=== PATIENT | male | born 1945 | race Caucasian/White ===

== ENCOUNTER → 2017-12-20 16:37 | Outpatient (CLI) | payer MEDICARE, BC, SELFPAY ==
--- NOTE | 2017-12-20 16:35 | CT_ITS ---
STUDY: CT TEMPORAL BONES WITHOUT CONTRAST REASON FOR EXAM: Male, 72 years old. ear pain after right cochlear implant in 2016 RADIATION DOSAGE (If Supplied By Facility): CTDIvol = ( 82.28 ) mGy, DLP = ( 817.07 ) mGycm TECHNIQUE: The patient was scanned in a multi detector CT scanner. High resolution transaxial imaging was performed without the administration of intravenous contrast material. Sagittal and coronal images were reconstructed. Individualized dose optimization techniques were used for this CT. COMPARISON: June 06, 2015 FINDINGS: RIGHT TEMPORAL BONE A cochlear implant is present on the right, with leads in appropriate position. The ossicles are absent. Membranous debris is present in the external auditory canal and residual tympanic cavity. The tympanic membrane is absent. There is diffuse enlargement of the tympanic cavity which could be postoperative in nature or related to chronic erosive changes. The scutum is absent. No evidence of tegmen tympani or semicircular canal dehiscence. No evidence of osseous facial nerve canal dehiscence. Nonpneumatization of the mastoid portion of the temporal bone. LEFT TEMPORAL BONE Normal left external auditory canal. Normal malleus, incus and stapedius. Normal malleoincudal and incudostapedial articulations. Normal epitympanum, mesotympanum, and hypotympanum. Normal left posterior, superior and lateral semicircular canals. Normal left vestibule and cochlea. Normal tympanic segment of the facial nerve. Normal Korner's septum, tegmen tympani, arcuate eminence and aditus ad antrum. Normal left mastoid air cells. Normal left petrous apex. Normal left petrous carotid artery. Normal left jugular fossa. Normal left internal auditory canal. Normal left vestibular and cochlear aqueducts. CT/Orb Sella Post Fossa Ear w/o IMPRESSION: Cochlear implant on the right with leads in appropriate position. Membranous debris in the residual external auditory canal and tympanic cavity on the right. No evidence of osseous dehiscence of the tegmen tympani, semicircular canals, or facial nerve on the right. Multiple structures are absent on the right which could be related to postoperative change and/or chronic erosive disease. Electronically Signed: Kilo Pimentel MD at 1:37 EDT Tel , Service support ,
== END ==
PROVIDERS: Family Provider Family Medicine; PCP Family Medicine; Visit Provider Otolaryngology
DX: H92.09 Otalgia, unspecified ear (principal); Z96.21 Cochlear implant status
CPT/HCPCS: 70480

== ENCOUNTER → 2018-07-03 16:36 | Outpatient (CLI) | payer MEDICARE, BC, SELFPAY ==
[2015-09-20 06:19] VITALS: BMI 26.4
[2018-07-03 17:32] LABS: Hematocrit 41.4 % (40-54); Hemoglobin 14.1 g/dl (13.0-16.5); Mean Corp Hgb Conc 34.1 g/gl (32-36); Mean Corpuscular Hgb 31.3 pg (27.0-32.0); Mean Corpuscular Volume 91.8 fL (80-94); Mean Platelet Vol. 10.9 fl (6.2-12.0); Platelet Count 119 K/mm3 (150-450); RBC Distribution Width CV 13.1 % (11.6-14.6); RBC Distribution Width SD 43.2 fl (35.1-43.9); Red Blood Count 4.51 M/mm3 (4.6-6.2); White Blood Count 7.3 K/mm3 (4.4-11.0)
[2018-07-03 17:38] LABS: Scan Indicated on CBC? Y/N NO
[2018-07-03 17:53] LABS: Erythrocyte Sedimentation Rate 2 mm/hr (0-20)
[2018-07-03 18:02] LABS: ALB/GLOB Ratio 1.2 RATIO (0.9-2.4); AST(SGOT) 15 U/L (15-37); Alanine Aminotransfer ALT/SGPT 28 U/L (16-61); Albumin, Serum 4.3 g/dL (3.2-5.0); Alkaline Phosphatase 86 U/L (45-117); Anion Gap 9 (5-15); BUN 26 mg/dL (7-18); BUN/Creat Ratio 17.7 RATIO (10-20); Chloride 104 mmol/L (98-107); Creatinine, Serum 1.47 mg/dL (0.70-1.30); EST Glomerular Filtration Rate 50 mL/min (>60); Est Glom Filt Rate - Afr Amer 61 mL/min (>60); Globulin 3.7 g/dL (2.2-4.2); Glucose 91 mg/dL (74-106); Potassium 3.9 mmol/L (3.5-5.1); Sodium Level 139 mmol/L (136-145)
[2018-07-07 15:24] LABS: Endomysial Antibody IgA Negative (Negative)
[2018-07-08 09:57] LABS: Immunoglobulin A 269 mg/dL (61-437); t-Transglutaminase IgA <2 U/mL (0-3)
--- OUTSIDE RECORDS SUMMARY | 2018-08-28 22:51 | XMS RPT_ITS ---
:1945 Author Organization OHIP Care Team Providers Name Role Phone Samy Chi Attending Unavailable Samy Chi Primary Care Unavailable Samy Chi Admitting Unavailable Samy Chi Attending Unavailable Chi, Christopher Primary Care Unavailable Chi, Christopher Admitting Unavailable Chi, Christopher Attending Unavailable Chi, Christopher Primary Care Unavailable Chi, Christopher Attending Unavailable Chi, Christopher Primary Care Unavailable Chi, Christopher Attending Unavailable Chi, Christopher Primary Care Unavailable Parker Fallon Admitting Unavailable Parker Fallon Attending Unavailable Chi, Christopher Primary Care Unavailable Parker Fallon Admitting Unavailable Parker Fallon Attending Unavailable Chi, Christopher Primary Care Unavailable Chi, Christopher Attending Unavailable Chi, Christopher Primary Care Unavailable Chi, Christopher Admitting Unavailable Chi, Christopher Attending Unavailable Chi, Christopher Primary Care Unavailable Chi, Christopher Attending Unavailable Chi, Christopher Primary Care Unavailable Chi, Christopher Attending Unavailable Chi, Christopher Primary Care Unavailable Chi, Christopher Attending Unavailable Chi, Christopher Primary Care Unavailable Chi, Christopher Admitting Unavailable Chi, Christopher Attending Unavailable Chi, Christopher Primary Care Unavailable Chi, Christopher Attending Unavailable Chi, Christopher Primary Care Unavailable Wartmann, Steve Attending Unavailable Wartmann, Steve Referring Unavailable Chi, Steve Primary Care Unavailable Jabour, Vincent Attending Unavailable Jabour, Vincent Referring Unavailable Chi, Steve Primary Care Unavailable Jabour, Vincent Attending Unavailable Jabour, Vincent Referring Unavailable Chi, Steve Primary Care Unavailable PARKER FALLON Attending Unavailable CHI, CHRISTOPHER ALYSSA Primary Care Unavailable SHANEL TOUSSAINT Attending Unavailable CHI, CHRISTOPHER ALYSSA Primary Care Unavailable PARKER FALLON Attending Unavailable CHI, CHRISTOPHER ALYSSA Primary Care Unavailable PARKER FALLON Referring Unavailable SHANEL TOUSSAINT Admitting Unavailable CHI, CHRISTOPHER ALYSSA Primary Care Unavailable PARKER FALLON Admitting Unavailable CHI, CHRISTOPHER ALYSSA Referring Unavailable CHI, CHRISTOPHER ALYSSA Primary Care Unavailable PARKER FALLON Attending Unavailable CHI, CHRISTOPHER ALYSSA Admitting Unavailable CHI, CHRISTOPHER ALYSSA Referring Unavailable CHI, CHRISTOPHER ALYSSA Primary Care Unavailable PARKER FALLON Attending Unavailable CHI, CHRISTOPHER ALYSSA Primary Care Unavailable PROBLEMS PROBLEMS DATE TYPE CONDITION / CODE ATTENDING STATUS SOURCE Unknown H92.09 - Otalgia, David, Active [place] 8 unspecified ear / [facility] H92.09(ICD-10) Hospital Repository Unknown Z96.21 - Cochlear Haile[place]oleen, [facility] 8 implant status / [facility] Z96.21(ICD-10) Hospital Repository Admitting Atrioventricular [facility], [place] [address] diagnosis block, first degree / [facility] L[facility] I44.0(ICD-10) Repository Admitting Atrial premature [place] [address] diagnosis depolarization / [facility] I49.1(ICD-10) Repository Admitting Shortness of breath / [place] [address] diagnosis R06.02(ICD-10) [facility] Three Repository Admitting Bradycardia, [place] [address] diagnosis unspecified / [facility] R00.1(ICD-10) Repository PROCEDURES PROCEDURES No Procedure Records FoundRESULTS RESULTS ABDOMEN COMPLETE Observed: 07/10/2018 Status: F Source: [place] 9:21 AM [facility] REPOSITORY [facility] Imaging Services [address] [place] [address] Abdomen Complete MR#: [id number] Acct: [id number] Name: CHARLES HODGSON Rep #: [id number] : 1945 M 73 From: Aston Rivera MD PCP: Samy Chi MD Status: REG CLI Study: Abdomen Complete Date of Exam: 07/10/18 Exam# [id number] Ordering Dr: Adi Hudson MD STUDY: ABDOMINAL ULTRASOUND REASON FOR EXAM: Male, 73 years old. Abdominal pain TECHNIQUE: Transabdominal ultrasound was performed with real-time and static [place] scale imaging. TECHNICAL QUALITY: Adequate. COMPARISON: CT November 21, 2016. FINDINGS: Liver: The liver measures 12.9 cm. There is increased echogenicity consistent with fatty infiltration. The bile ducts are within normal limits. There is hepatic color flow. The direction of portal flow is hepatopetal. There is no demonstrated mass lesion. Gallbladder: Normal distended gallbladder. The gallbladder wall measures 2 mm. There is a negative sonographic Carlson's sign. There is no pericholecystic fluid. There are no gallstones. Common Bile Duct (C.B.D.): The common bile duct measures 5 mm. Pancreas: Normal size of the head, body and tail of the pancreas. There is normal echogenicity of the pancreas. There is no demonstrated pancreatic mass or cyst. Spleen: Normal size of the spleen. The spleen measures 12.3 cm. Right Kidney: Normal size of the right kidney. The right kidney measures 10.7 cm. Normal renal cortex. The right cortex measures 1.3 cm. There is a 4.8 cm cyst at the upper pole. There is no right hydronephrosis. Left Kidney: Normal size of the left kidney. The left kidney measures 10.9 cm. Normal renal cortex. The left cortex measures 1.4 cm. There is no demonstrated renal mass or cyst. There is no left hydronephrosis. Aorta: Normal. I.V.C.: The IVC is patent. There is no ascites. US/Abdomen Complete IMPRESSION: Fatty infiltration of the liver. No gallstones or biliary dilatation. Right renal cyst. Electronically Signed: Aston Rivera MD at 17:06 EST , Service support , CC: Samy Chi MD; Adi Hudson Easter Bunny: Signed CBC-COMPLETE BLOOD CNT Collected: 07/03/2018 Status: F Source: [place] NO DIFF 4:42 PM [facility] REPOSITORY TYPE CODE TESTS RESULT OUT OF RANGE REFERENCE UNITS LAB L100.1000 4.4-11.0 K/mm3 Normal WBC 7.3 LAB L100.1200 4.6-6.2 M/mm3 Low RBC 4.51 LAB L100.1300 13.0-16.5 g/dl Normal HGB 14.1 LAB L100.1400 40-54 % Normal HCT 41.4 LAB L100.1500 80-94 fL Normal MCV 91.8 LAB L100.1600 27.0-32.0 pg Normal MCH 31.3 LAB L100.1700 32-36 g/gl Normal MCHC 34.1 LAB L100.1810 11.6-14.6 % Normal RDW CV 13.1 LAB L100.1820 35.1-43.9 fl Normal RDW SD 43.2 LAB L100.1900 150-450 K/mm3 Low PLT 119 LAB L100.2000 6.2-12.0 fl Normal MPV 10.9 Performed By: #### L100.0500, L101.9900 #### [facility] [address] [place], [place], [address] ERYTHROCYTE SED RATE Collected: 07/03/2018 Status: F Source: [place] 4:42 PM [facility] REPOSITORY TYPE CODE TESTS RESULT OUT OF RANGE REFERENCE UNITS LAB L102.0000 0-20 mm/hr Normal SED RATE 2 Performed By: #### L100.0500, L101.9900 #### [facility] [address] [facility] [address] [facility] [address] [facility] [address] COMPREHENSIVE METABOLIC Collected: 07/03/2018 Status: F Source: [facility] 4:42 PM [facility] REPOSITORY TYPE CODE TESTS RESULT OUT OF RANGE REFERENCE UNITS LAB L501.0100 74-106 mg/dL Normal GLU 91 Result Comment: Please note revised GLUCOSE reference range effective 2017. LAB L501.1000 7-18 mg/dL High BUN 26 LAB L501.1100 0.70-1.30 mg/dL High CREAT,SERUM 1.47 Result Comment: The validity of the calculated GFR AND GFRAA in patients over 70 years has not been determined. Clinical correlation is essential. LAB L501.1110 >60 mL/min Low EST GFR 50 Result Comment: Non- GFR Calc LAB L501.1115 >60 mL/min Normal EST GFR - AA 61 Result Comment: GFR Calc LAB L501.1300 10-20 RATIO Normal BUN/CRE 17.7 LAB L501.1500 6.4-8.2 g/dL T Normal PROT 8.0 LAB L501.1800 3.2-5.0 g/dL Normal ALB 4.3 LAB L501.1950 2.2-4.2 g/dL Normal GLOB 3.7 LAB L501.2000 0.9-2.4 RATIO Normal A/G 1.2 LAB L501.2200 8.5-10.1 mg/dL CA Normal 9.0 LAB L501.4100 15-37 U/L Normal AST 15 LAB L501.4305 45-117 U/L Normal ALK P 86 LAB L501.4405 16-61 U/L Normal ALT 28 LAB L501.4600 0.20-1.00 mg/dL T Normal BILI 0.50 LAB L501.5300 136-145 mmol/L NA Normal 139 LAB L501.5600 3.5-5.1 mmol/L K Normal 3.9 LAB L501.5900 98-107 mmol/L CL Normal 104 LAB L501.6100 21.0-32.0 mmol/L Normal CO2 26.0 LAB L501.6200 5-15 Normal GAP 9 Performed By: #### L500.4050 #### [facility] [address] [place], [place], [address] CELIAC DISEASE Collected: 07/03/2018 Status: F Source: [place] PROFILE 4:42 PM [facility] REPOSITORY TYPE CODE TESTS RESULT OUT OF RANGE REFERENCE UNITS LAB L3200.1400 61-437 mg/dL Normal IMMUNO A 269 Result Comment: Performed at: - [facility] [id number] Noodle Maker: Adi Allen PhD, Phone: [phone] LAB L3496.0565 0-3 U/mL Normal tTG IGA <2 Result Comment: Negative 0 - 3 Weak Positive 4 - 10 Positive >10 Tissue Transglutaminase (tTG) has been identified as the endomysial antigen. Studies have demonstr- ated that endomysial IgA antibodies have over 99% specificity for gluten sensitive enteropathy. LAB L3410.8056 Negative Normal ENDOMYSIAL IGA Negative Performed By: #### L3410.2400 #### [facility] (refer to report for specific site) refer to report for address and phone number CBC W/ AUTO DIFF Collected: 05/24/2018 Status: F Source: [facility] 8:49 AM [facility] REPOSITORY TYPE CODE TESTS RESULT OUT OF RANGE REFERENCE UNITS LAB 72150906(L 3.6-11.0 E3/mcL OINC) Normal WBC 5.8 LAB 79964496(L 3.90-6.10 E6/mcL OINC) Normal RBC 4.15 LAB 70104953(L 13.5-18.0 G/DL OINC) Low Hgb 13.0 LAB 86796142(L 42.0-52.0 % OINC) Low Hct 37.6 LAB 33466696(L 11.5-14.5 % OINC) Normal RDW 13.2 LAB 45316671(L 27.0-31.0 pg OINC) High MCH 31.3 LAB 63228629(L 33.0-37.0 G/DL OINC) Normal MCHC 34.6 LAB 13802450(L 78.0-100.0 fL OINC) Normal MCV 90.7 LAB 55809011(L 7.4-11.0 fL OINC) Normal MPV 7.9 LAB 79112948(L 130-400 E3/mcL OINC) Normal Platelet 137 Performed By: #### [id number] #### [facility] [address] [place] [address] AUTO DIFF Collected: 05/24/2018 Status: F Source: [facility] 8:49 AM [facility] REPOSITORY Order Comment: Order Added by Discern Expert. TYPE CODE TESTS RESULT OUT OF RANGE REFERENCE UNITS LAB 36751086(L 37.0-75.0 % OINC) Normal Neutro Auto 53.2 LAB 38706398(L 20.0-55.0 % OINC) Normal Lymph Auto 30.8 LAB 53695176(L 0.0-10.0 % OINC) Normal Wetzel Auto 8.4 LAB 43032222(L 0.0-11.0 % OINC) Normal Eos Auto 7.1 LAB 88157898(L 0.0-2.0 % OINC) Normal Basophil Auto 0.5 LAB 76310725(L 1.4-6.5 E3/mcL OINC) Normal Neutro 3.1 Absolute LAB 51643871(L 1.2-3.4 E3/mcL OINC) Normal Lymph Absolute 1.8 LAB 82610497(L 0.0-0.7 E3/mcL OINC) Normal Wetzel Absolute 0.5 LAB 97271191(L 0.0-0.7 E3/mcL OINC) Normal Eos Absolute 0.4 LAB 58950133(L 0.0-0.2 E3/mcL OINC) Normal Basophil 0.0 Absolute Performed By: #### [id number] #### [facility] [address] [place] [address] PSA SCREEN Collected: 05/24/2018 Status: F Source: [facility] 8:49 AM [facility] REPOSITORY TYPE CODE TESTS RESULT OUT OF RANGE REFERENCE UNITS LAB 47709017(LO ng/mL INC) Normal PSA 4.87 Result Comment: AGE-SPECIFIC REFERENCE RANGES FOR SERUM PSA REFERENCE RANGE NG/ML AGE ASIANS BLACKS WHITE 40-49 0- 2 0-2 0-2.5 50-59 0- 3 0-4 0-3.5 60-69 0- 4 0-4.5 0-4.5 70-79 0- 5 0-5.5 0-6.5 PSA INCREASES WITH AGE, RACE, AND EJACULATION WITHIN 48 HRS. [facility] VOL24,NO.2, , PG.339 Performed By: #### [id number] #### [facility] [address] [place] [address] TSH Collected: 05/24/2018 Status: F Source: [facility] 8:49 AM [facility] REPOSITORY TYPE CODE TESTS RESULT OUT OF RANGE REFERENCE UNITS LAB 75803907(LO 0.30-5.60 mIU/m INC) Normal TSH 0.66 Performed By: #### [id number] #### [facility] [place] [address] VIT B12 Collected: 05/24/2018 Status: F Source: [facility] 8:49 AM [facility] REPOSITORY TYPE CODE TESTS RESULT OUT OF RANGE REFERENCE UNITS LAB 85418167(LO 180-914 pg/mL INC) Normal Vitamin B12 283 Lvl Performed By: #### [id number] #### [facility] [place] [id number] CMP Collected: 05/24/2018 Status: F Source: [facility] 8:49 AM [facility] REPOSITORY TYPE CODE TESTS RESULT OUT OF RANGE REFERENCE UNITS LAB 42320549(L 70-99 mg/dL OINC) High Glucose Lvl 105 LAB 28919703(L 6-23 mg/dL OINC) BUN Normal 18 LAB 0542699(LO 0.6-1.3 mg/dL INC) Normal Creatinine 1.1 LAB 43994009(L 8.6-10.3 mg/dL OINC) Calcium Normal Lvl 9.2 LAB 38638293(L 136-145 mEq/L OINC) Sodium Normal Lvl 138 LAB 54311265(L 3.5-5.3 mEq/L OINC) Normal Potassium Lvl 3.7 LAB 65439563(L 98-107 mEq/L OINC) Chloride Normal 105 LAB 25789675(L 21.0-32.0 mEq/L OINC) CO2 Normal 28.0 LAB 50408073(L 33-136 OINC) Alk Phos Normal 82 LAB 82266464(L 0.0-1.2 mg/dL OINC) Bili Normal Total 0.7 LAB 94396756(L 3.4-5.0 G/DL OINC) Albumin Normal Lvl 4.1 LAB 81193976(L 6.4-8.2 gm/dL OINC) Low Total Protein 6.3 LAB 42105481(L 10-52 Int._Unit/ OINC) L ALT Normal 17 LAB 26309296(L 9-39 Int._Unit/ OINC) L AST Normal 14 LAB 84255595(L 5.4-30.0 ratio OINC) Normal BUN/Creat Ratio 16.4 LAB 33019993(L 2.0-4.0 G/DL OINC) Globulin Normal 2.0 LAB 61047939(L 1.1-1.9 ratio OINC) A/G Normal Ratio 1.9 LAB 50784490(L 10-20 mEq/L OINC) Low AGAP 9 Performed By: #### [id number] #### [facility] [address] [place] [address] EGFR Collected: 05/24/2018 Status: F Source: [place] 8:49 AM [facility] REPOSITORY Order Comment: Order added by Discern Expert. TYPE CODE TESTS RESULT OUT OF RANGE REFERENCE UNITS LAB 85640408(LO mL/min/1.73 INC) m2 Normal eGFR >60 LAB 74261155(LO mL/min/1.73 INC) m2 Normal eGFR AA >60 Performed By: #### [id number] #### [facility] [place] [address] ORB SELLA POST Observed: 12/20/2017 Status: F Source: [place] FOSSA EAR W/O 4:40 PM [facility] REPOSITORY [facility] Imaging Services [address] [place] [address] Orb Sella Post Fossa Ear w/o MR#: [id number] Acct: [id number] Name: CHARLES HODGSON Rep #: [id number] : 1945 M 72 From: Kilo Pimentel MD PCP: Samy Chi MD Status: REG CLI Study: Orb Sella Post Fossa Ear w/o Date of Exam: 12/20/17 Exam# [id number] Ordering Dr: Steve Hernandez MD STUDY: CT TEMPORAL BONES WITHOUT CONTRAST REASON FOR EXAM: Male, 72 years old. ear pain after right cochlear implant in 2016 RADIATION DOSAGE (If Supplied By Facility): CTDIvol = ( 82.28 ) mGy, DLP = ( 817.07 ) mGycm TECHNIQUE: The patient was scanned in a multi detector CT scanner. High resolution transaxial imaging was performed without the administration of intravenous contrast material. Sagittal and coronal images were reconstructed. Individualized dose optimization techniques were used for this CT. COMPARISON: June 06, 2015 FINDINGS: RIGHT TEMPORAL BONE A cochlear implant is present on the right, with leads in appropriate position. The ossicles are absent. Membranous debris is present in the external auditory canal and residual tympanic cavity. The tympanic membrane is absent. There is diffuse enlargement of the tympanic cavity which could be postoperative in nature or related to chronic erosive changes. The scutum is absent. No evidence of tegmen tympani or semicircular canal dehiscence. No evidence of osseous facial nerve canal dehiscence. Nonpneumatization of the mastoid portion of the temporal bone. LEFT TEMPORAL BONE Normal left external auditory canal. Normal malleus, incus and stapedius. Normal malleoincudal and incudostapedial articulations. Normal epitympanum, mesotympanum, and hypotympanum. Normal left posterior, superior and lateral semicircular canals. Normal left vestibule and cochlea. Normal tympanic segment of the facial nerve. Normal Korner's septum, tegmen tympani, arcuate eminence and aditus ad antrum. Normal left mastoid air cells. Normal left petrous apex. Normal left petrous carotid artery. Normal left jugular fossa. Normal left internal auditory canal. Normal left vestibular and cochlear aqueducts. CT/Orb Sella Post Fossa Ear w/o IMPRESSION: Cochlear implant on the right with leads in appropriate position. Membranous debris in the residual external auditory canal and tympanic cavity on the right. No evidence of osseous dehiscence of the tegmen tympani, semicircular canals, or facial nerve on the right. Multiple structures are absent on the right which could be related to postoperative change and/or chronic erosive disease. Electronically Signed: Kilo Pimentel MD at 1:37 EDT Tel , Service support , CC: Samy Chi MD; Samy Hernandez MD Easter Bunny: Signed CMP Collected: 11/23/2017 Status: F Source: [facility] 9:37 AM [facility] REPOSITORY TYPE CODE TESTS RESULT OUT OF RANGE REFERENCE UNITS LAB 84098309(L 70-99 mg/dL OINC) High Glucose Lvl 106 LAB 54698178(L 8.4-10.2 mg/dL OINC) Calcium Normal Lvl 9.2 LAB 92872774(L 136-145 mEq/L OINC) Sodium Normal Lvl 140 LAB 44711300(L 3.5-5.1 mEq/L OINC) Normal Potassium Lvl 3.8 LAB 40882496(L 98-107 mEq/L OINC) Chloride Normal 104 LAB 73804050(L 24.0-30.0 mEq/L OINC) CO2 Normal 27.0 LAB 68445935(L 7-18 mg/dL OINC) High BUN 21 LAB 5505910(LO 0.6-1.3 mg/dL INC) Normal Creatinine 1.1 LAB 43281834(L 42-121 Int._Unit/ OINC) L Alk Phos Normal 73 LAB 14182665(L 0.2-1.0 mg/dL OINC) Bili Normal Total 0.7 LAB 09896145(L 3.2-5.0 G/DL OINC) Albumin Normal Lvl 4.2 LAB 09347272(L 6.4-8.3 G/DL OINC) Total Normal Protein 7.5 LAB 59142836(L 10-40 Int._Unit/ OINC) L ALT Normal 27 LAB 34479796(L 10-42 Int._Unit/ OINC) L AST Normal 23 LAB 01196568(L 5.4-30.0 ratio OINC) Normal BUN/Creat Ratio 19.1 LAB 16710382(L 2.0-4.0 G/DL OINC) Globulin Normal 3.3 LAB 83796686(L 1.1-1.9 ratio OINC) A/G Normal Ratio 1.3 Performed By: #### [id number] #### LIBBY [employer] [address] [place] [address] EGFR Collected: 11/23/2017 Status: F Source: [facility] 9:37 AM [facility] REPOSITORY Order Comment: Order added by Discern Expert. TYPE CODE TESTS RESULT OUT OF RANGE REFERENCE UNITS LAB 46481349(LO mL/min/1.73 INC) m2 Normal eGFR >60 LAB 10832154(LO mL/min/1.73 INC) m2 Normal eGFR AA >60 Performed By: #### [id number] #### [facility] [address] [place] [address] NM MYOCARDIAL SPECT Observed: 10/21/2017 Status: F Source: [facility] REST/STRESS 6:18 AM [facility] REPOSITORY Exam Date/Time: 10/21/2017 10:34 EDT Reason for Exam: SOB ON EXERTION VASYL ORD CARD Report Nuclear medicine cardiac SPECT stress test with ejection fraction History: Dyspnea on exertion. COMPARISON: None Method: For the rest portion of the examination, the patient was injected IV with 8 mCi [id number] and rest SPECT images were acquired. For the stress portion of the examination, the patient followed a Parker protocol. When the patient reached 85% of their maximal-predicted heart rate, the patient was injected IV with 32 mCi [id number] and stress SPECT images were acquired. Findings: There is diaphragmatic attenuation. There is relatively normal accumulation of radiopharmaceutical throughout the myocardium on both rest and stress images with no evidence of reversible changes. There is no left ventricular dilatation. The ejection fraction equals 61% with no focal wall motion abnormalities. IMPRESSION: No evidence of exercise stress-induced myocardial ischemia. Ejection fraction equals 61%. FINAL REPORT Dictated: 10/21/2017 1:29 pm Evan Bone MD Signed (Electronic Signature): 10/21/2017 1:29 pm Signed by: Evan Bone MD Technologist: DESTINY MATTSON Collected: 08/10/2017 Status: F Source: [facility] 9:54 AM [facility] REPOSITORY TYPE CODE TESTS RESULT OUT OF RANGE REFERENCE UNITS LAB 70525410(L 70-99 mg/dL OINC) High Glucose Lvl 110 LAB 78870943(L 8.4-10.2 mg/dL OINC) Calcium Normal Lvl 9.4 LAB 73703330(L 136-145 mEq/L OINC) Sodium Normal Lvl 137 LAB 45355140(L 3.5-5.1 mEq/L OINC) Normal Potassium Lvl 4.1 LAB 40903605(L 98-107 mEq/L OINC) Chloride Normal 103 LAB 19229937(L 24.0-30.0 mEq/L OINC) CO2 Normal 27.3 LAB 10692338(L 7-18 mg/dL OINC) High BUN 24 LAB 9264375(LO 0.6-1.3 mg/dL INC) Normal Creatinine 1.0 LAB 67605029(L 5.4-30.0 ratio OINC) Normal BUN/Creat Ratio 24.0 Performed By: #### [id number] #### LIBBY [facility] [address] [place], [place] [address] EGFR Collected: 08/10/2017 Status: F Source: [facility] 9:54 AM [facility] REPOSITORY Order Comment: Order added by Discern Expert. TYPE CODE TESTS RESULT OUT OF RANGE REFERENCE UNITS LAB 73904507(LO mL/min/1.73 INC) m2 Normal eGFR >60 LAB 08624783(LO mL/min/1.73 INC) m2 Normal eGFR AA >60 Performed By: #### [id number] #### LIBBY [facility] [place] [address] ALLERGIES ALLERGIES DATE TYPE / CODE NAME / CODE REACTION SEVERITY SOURCE 10/14/2017 Drug PENICILLINS [facility] Class/05850 Three Repository 1003(SNOMED CT) 09/12/2015 Drug Penicillins/C13037 Rash Unknown Nazario Allergy/416 0476(RXNORM) Community 668058([facility] CT) Repository Drug/524058 penicillin [id number] [facility] 003([facility]) System Repository ENCOUNTERS ENCOUNTERS ADMIT/DISCHARGE ACCOUNT NUMBER ADMITTING ENCOUNTER LOCATION SOURCE CLASS 07/10/2018 [id number] [facility] ing:US Repository 07/03/2018 [id number] [facility] 05/27/2018 [id number] [facility] Repository 05/27/2018/ [id number] [facility] Rep[facility] 05/24/2018/ [id number] Alon Ambulatory [facility] 018 [facility] ing:[facility] System Repository 05/24/[id number] Repository 03/03/2018 [id number] Ambulatory Building[facility] Three [place] Repository 02/24/2018/ [id number] [facility] Repository AssocRoom: Room 3 12/20/2017 [id number] [facility] ing:CT Repository 12/18/2017 [id number] Amb[facility] Three [place] Repository 12/10/2017/ [id number] [facility] Rep[facility] AssocRoom: Room 1 11/25/2017/ [id number] Ambulatory Medical [facility] 018 [facility] Med Repository AssocRoom: Room 1 11/23/2017/ [id number] Alon, Ambulatory [facility] 018 [facility] ing:[facility] Repository 10/25/2017 [id number] Ambulatory Building:[facility] Three Repository 10/24/2017/ [id number] Vasyl, Ambulatory [facility] 018 [facility] ing[facility] Repository 10/24/2017/ [id number] BREANA, Ambulatory Building:[place] [address] [address] [facility] Three CATION Repository 10/21/2017/ [id number] Ambulatory Medical [facility] 018 [facility] Med [facility]oc Repository 10/21/2017/ [id number] VASYL, Ambulatory Building:[place] [address] [address] [facility]CV[facility]EL[facility] Three CATION Repository 10/21/2017/ [id number] Vasyl, Ambulatory [facility]oo [facility] 018 [facility] Regional ing:[facility] Repository 10/21/2017 [id number] Ambulatory Building:[facility] Three Repository 10/14/2017/ [id number] ALON, Ambulatory Building:[address] Three ALYSSA Repository 09/19/2017/ [id number] Ambulatory Medical [facility] 018 Associates [facility] System Med Repository AssocRoom: Room 2 08/23/2017/ [id number] Alon, Ambulatory Voodoo [facility]oodoo 018 [facility] Regional ing[facility] Repository 08/16/2017/ [id number] Ambulatory Medical [facility] 018 [facility] [facility] Rep[facility] AssocRoom: Room 3 08/10/2017/ [id number] [address] [facility] ing:SH.[facility] Repository PAYERS PAYERS ENCOUNTER GUARANTOR PAYER SUBSCRIBER SOURCE 07/10/2018 CHARLES Wilson Primary CHARLES Wilson [place] [id number] TR Insurance:MEDICARE BUTLERDOB: [place] PART A BPolicy [id number] Hospital [address]359Sld: (330) Number: Repository [phone] () [id number] Date:2018-07-02 07/10/2018 Secondary CHARLES L [place] Insurance:ANTHEMPolic BUTLERDOB: Community y Number: [id number] Indian Medical [id number] Repository Date:9197-13-40IK [address] [address]DQ: 07/10/2018 Tertiary NOT GIVENUNK [place] Insurance:SELF PAY [facility]: Effective Repository Date:2018-07-02 07/03/2018 CHARLES Wilson Primary CHARLES Wilson [place] [id number] TR Insurance:MEDICARE BUTLERDOB: [place] PART A olic [id number] Hospital 99894Shk: (330) Number: Repository [phone] () [id number] Date:2018-07-03 07/03/2018 Secondary CHARLES Wilson [place] Insurance:ANTHEMPolic BUTLERDOB: Community y Number: [id number] Indian Medical [id number] Repository Date:5277-84-78IB [address] [address]RD: 07/03/2018 Tertiary NOT GIVENUNK [place] Insurance:SELF PAY [facility] Number: Effective Repository Date:2018-07-03 05/27/2018 CHARLES L Primary CHARLES Wilson V[place]oo BUTLERDOB: Insurance:1500 BUTLERDOB: [facility] [id number] MEDICARE [id number] [facility] Number: [address] Repository [place] [address]Kbj: Date:2018-05-27 [address]Xru: 8957-38-46Tglz (HP) Name:CD:[id number] O (HP)Tel: (000) [address] [address]RSGMJSHUF, 000-0000 (WP) [place] [address]BK: 05/27/2018 Secondary [facility] Insurance:1500 BUTLERDOB: [facility] ANTHEMPolicy Number: [id number] System Effective [address] [facility] [address] Repository Date:2018-05-27 [place] 8627-21-34Ndin [address]Sxx: Name:CD:[id number] [address] ()Tel: (000) [phone]: (WP) [phone] 05/27/2018 [facility] BUTLERDOB: Insurance:1500 BUTLERDOB: [facility] MEDICARE [id number] System [facility] PRIMARYPolicy Number: [address] [facility] [address] Repository [place] Effective [place] [address]Iyc: Date:2018-02-2434161-8087Ckm: 0073-00-99Dlku (HP) Name:CD:[id number] O (HP)Tel: (000) [address]NINIYRHGM, 000-0000 (WP) [place] [address]JE: 05/27/2018 Secondary [facility] Insurance:1500 BUTLERDOB: [facility] ANTHEMPolicy Number: [id number] System Effective [address] [facility] [address] Repository Date:2018-02-24 - [place] 0855-28-30Vwzd [address]Ipf: Name:CD:[id number] O [address] ()Tel: (000) [phone]: (WP) [phone] 05/24/2018 [facility] BUTLERDOB: Insurance:MedicarePol BUTLERDOB: [facility] icy Number: Effective [id number] Date:2018-05-24 [facility] Repository [address] [place] [address] 2850-22-00Dqhe [address] [place] [address]Qbk: Name:CD:[id number] [address] [address]Vag: [id number], [place] (HP) [phone]: (800) (HP) [phone] (WP) 05/24/2018 [facility] Insurance:ANTHEMPolic BUTLERDOB: [facility] y Number: Effective [id number] System Date:2018-05-[address] [facility] Repository 5439-27-40Cesd [address] [place] [address] Name:Nigel [facility] [address]Qfg: [id number], [place] [address]VS: ([phone]) (HP) [phone] (WP) 05/24/2018 [facility] hospital BUTLERDOB: Insurance:MedicarePol BUTLERDOB: Hospitals icy Number: [id number] Repository [address] [id number] [address] [facility] [address] [place] [address] Date:Plan Name:[address] [id number]: A [phone]: (HP) (HP) 05/24/2018 Critical access hospital Insurance:MedicarePol BUTLERDOB: Hospitals icy Number: [id number] Repository [id number] [address] [facility] Date:Plan Name:[address] B [id number]: (HP) 05/24/2018 [facility] Insurance:AnthemPolic BUTLERDOB: Hospitals y Number: [id number] Repository [id number] [address] Date:Plan Name:[place] [id number]: (HP) 03/03/2018 [facility] BUTLERDOB: Insurance:MEDICAREPol BUTLERDOB: Three Repository icy Number: [id number] [facility] [address] [id number] [address] [facility] [address] [place] Date:7499-92-60YXT [facility] [place] [address]Ila: (999 J15 PART A CLAIMSPO [id number]: (HP) [address] [address]FYDMQNTBS, [phone] (HP) [place] [address]SD: 03/03/2018 Secondary [facility] Insurance:ANTHEMPolic BUTLERDOB: Three Repository y Number: [id number] [address] [facility] [address] Date:0870-30-68GH BOX [facility]ITAL[facility] [place] [address]X[place]Z, [place] [address]Hzr: [phone]: (HP) [phone] 03/03/2018 Tertiary [facility] Insurance:ANTHEMPolic BUTLERDOB: Three Repository y Number: [id number] [address] [facility] [address] Date: - 8901-52-25AE [facility]CLE[facility] [place] [address]XZDZACR, [place] [address]ZC: 02/24/2018 [facility] BUTLERDOB: Insurance:1500 BUTLERDOB: [facility] MEDICARE [id number] System [facility] [address] PRIMARYPolicy Number: [address] [facility] [address] [place] [id number]: Date:2017-11-25 [id number]: 3096-83-66Qjuw (HP) Name:CD:[id number] O (HP)Tel: (000) [address]ZXSPBFUZB, 000-0000 () [place] [address]YQ: 02/24/2018 Secondary [facility] Insurance:1500 BUTLERDOB: [facility] ANTHEMPolicy Number: [id number] System Effective [address] [facility] [address] Repository Date:2017-11-25 - [place] 7094-69-61Kcxr [id number]: Name:CD:[id number] O [address]VUMFLZT, [place] ()Tel: [phone]: () [phone] 12/20/2017 [facility] Primary Charles L [place] [id number] TR Insurance:MEDICARE ButlerDOB: [address] PART A BPolicy [id number] Hospital [address]Ybj: (330) Number: Repository [phone] () [id number] Date:2017-12-11 12/20/2017 Secondary Charles L Nazario Insurance:ANTHEMPolic ButlerDOB: Community y Number: [id number] Hospital [id number] Repository Date:0670-09-35MP [address] [place] [address] [place] [address]BC: 12/20/2017 Tertiary NOT GIVENUNK [place] Insurance:SELF PAY [facility] Number: Effective Repository Date:2017-12-11 12/18/2017 [facility] BUTLERDOB: Insurance:MEDICAREPol BUTLERDOB: Three Repository icy Number: [id number] [facility] [id number] 3 [facility] [place], [place] Date:2726-33-14[address]JE[address] [address]Uzm: [phone] PART A CLAIMSPO [id number]: () [address] [address]DKTTBXVAW, [phone] () [place] [address]KL: 12/18/2017 Secondary [facility] Insurance:ANTHEMPolic BUTLERDOB: Three Repository y Number: [id number] [address] [facility] [address] Date:2656-72-89WA BOX [facility]CLE[facility] [place] [address]UCPZXQQ, [place] [address]Baf: [phone]: (HP) [phone] 12/18/2017 [facility] Insurance:ANTHEMPolic BUTLERDOB: Three Repository y Number: [id number] [address] [facility] [address] Date: - 4900-47-28UC [facility] [place] [address]BRVBTNU, [place] [address]PL: 12/10/2017 [facility] BUTLERDOB: Insurance:1500 BUTLERDOB: [facility] MEDICARE [id number] System [facility] [address] PRIMARYPolicy Number: [address] [facility] [address] Repository [address] [place] [address] [place] Effective [address] [place] [address] [id number]: Date:2017-12-10 [id number]: 5565-30-00Frqs12-31plan () Name:CD:[id number] O ()Tel: (531) [address] [address]PIUXTMPLW, [phone] (WP) [place] [id number]: 12/10/2017 Secondary [facility] Insurance:1500 BUTLERDOB: [facility] ANTHEMPolicy Number: [id number] System Effective [address] [facility] [address] Repository Date:2017-12-10 - [place] 5889-21-50Uwjv [id number]: Name:CD:[id number] [address]ZOULDPT, [place] ()Tel: [phone]: (WP) [phone] 11/25/2017 [facility] BUTLERDOB: Insurance:1500 BUTLERDOB: [facility] MEDICARE [id number] System [facility] [address] PRIMARYPolicy Number: [address] [facility] [address] Repository [place] Effective [place], [place] [id number]: Date:2017-10-21 [id number]: 1258-98-77Ddjl-12-31plan (HP) Name:CD:[id number] O (HP)Tel: 000) [address] [address]PDVLIGSYM, 000-0000 (WP) [place] [address]OQ: 11/25/2017 Secondary [facility] Insurance:1500 BUTLERDOB: [facility] ANTHEMPolicy Number: [id number] System Effective [address] [facility] [address] Repository Date:2017-10-21 - [place] 6892-89-06Keja [id number]: Name:CD:[id number] O [address]QVJMGBT, [place] ()Tel: [phone]: (WP) [phone] 11/23/2017 [facility] BUTLERDOB: Insurance:MedicarePol BUTLERDOB: [facility] icy Number: Effective [id number] System [facility] Date:2017-11-23 [facility] [address] Repository [place] 1239-16-22Tuoa [facility] [place] [id number]: Name:CD:[id number] [address]Fgi: 226305WFRRSFDDCM, [place] (HP) [phone]: (800) (HP) 000-0000 (WP) 11/23/2017 Secondary [facility] Insurance:ANTHEMPolic BUTLERB: [facility] y Number: Effective [id number] System Date:2017-11-23 [facility] [address] Repository 0238-92-47Wsih [place] Name:Nigel Lewis [id number]: 863915VQJXHDK, [place] [address]WP: (508) () 000-0000 (WP) 10/25/2017 [facility] BUTLERDOB: Insurance:ANTHEMPolic BUTLERDOB: Three Repository y Number: [id number] [facility] [address] [id number] [address] [facility] [address] [place], [place] Date:7574-57-11JY [address], [place] [address]Qfl: (999) 746708DRBNQJB, [place] [address]Nng: (HP) [phone]: (HP) [phone] 10/25/2017 Secondary [facility] Insurance:MEDICAREPol BUTLERDOB: Three Repository icy Number: [id number] [address] [facility] [address] Date:4023-39-59LEV [place], [place] J15 PART A CLAIMSPO [id number]: (999) [address] [address]FEQUOCOJQ, [phone] () [place] [id number]: 10/25/2017 Tertiary [facility] Insurance:ANTHEMPolic BUTLERDOB: Three Repository y Number: [id number] [address] [facility] [address] Date: - 7705-60-79RZ [address] [place] [address] [address]50LDJIVXN, [place] [address]IE: 10/24/2017 [facility] BUTLERDOB: Insurance:MedicarePol BUTLERDOB: [facility] icy Number: Effective [id number] System [facility] Date:2017-10-15 [facility] [address] Repository [place], [place] 9413-34-33Boaf [address] [place] [address] [place] [id number]: Name:CD:[id number] [address]Ajn: 178082CAQRPDRIKM, [place] (HP) [phone]: (080) (HP) 000-0000 (WP) 10/24/2017 [facility] Insurance:ANTHEMPolic BUTLERDOB: [facility] y Number: Effective [id number] System Date:2017-10-[address] [facility] [address] Repository 2630-74-46Ypdh [place] Name:Nigel CrossPO [address]00Tbg: 247186VKDLPWY, [place] [address]UV: (888) (HP) 000-0000 (WP) 10/24/2017 [facility] BUTLERDOB: Insurance:ANTHEMPolic BUTLERDOB: Three Repository y Number: [id number] [facility] [id number] [address] [facility] [address] [place] Date:1361-54-95GP [address], [place] [address]Myx: (999) 029029KKETJVZ, [place] [address]Yiy: (HP) [address]DS: (HP) [phone] 10/24/2017 [facility] Insurance:MEDICAREPol BUTLERDOB: Three Repository icy Number: [id number] [address] [facility] [address] Date:7471-85-31TKT [place] J15 PART A CLAIMSPO [id number]: (999) [address]SQFYBAIKL, [phone] () [place] [address]FY: 10/21/2017 [facility] BUTLERDOB: Insurance:1500 BUTLERDOB: [facility] MEDICARE [id number] System [facility] [address] PRIMARYPolicy Number: [address] [facility] Repository [place] Effective [place], [place] [id number]: Date:2017-09-19 [id number]: 2515-47-50Lzrm (HP) Name:CD:[id number] O (HP)Tel: (000) [address] [address]PQLGHMUGY, 000-0000 (WP) [place] [id number]: 10/21/2017 Secondary [facility] Insurance:1500 BUTLERDOB: [facility] ANTHEMPolicy Number: [id number] System Effective [address] [facility] [address] Repository Date:2017-09-19 - [place], [place] 9501-84-20Vwnb [id number]: Name:CD:[id number] O [address]TRGCESE, [place] ()Tel: (615) [phone]: (WP) [phone] 10/21/2017 [facility] BUTLERDOB: Insurance:ANTHEMPolic BUTLERDOB: Three Repository y Number: [id number] [facility] [address] [id number] [address] [facility] [address] [place] Date:3454-31-90VK [address], [place] [address]Dqv: (125) 513436ZNNNJJP, [place] [address]Wvk: (HP) [address]OT: () [phone] 10/21/2017 [facility] Insurance:MEDICAREPol BUTLERDOB: Three Repository icy Number: [id number] [address] [facility] [address] Date:6031-29-62WWM [place] J15 PART A CLAIMSPO [id number]: (999) [address] [address]TQYOSJLJQ, [phone] () [place] [id number]: 10/21/2017 [facility] BUTLERDOB: Insurance:MedicarePol BUTLERDOB: [facility] icy Number: Effective [id number] Date:2017-10-[address] [facility] [address] Repository [place] 9198-73-28Rqeq [facility] [place] [id number]: Name:CD:[id number] [address]Sgo: 784209BFQODOSFGJ, [place] (HP) [phone]: ([phone]) (HP) [phone] (WP) 10/21/2017 Secondary [facility] Insurance:ANTHEMPolic BUTLERDOB: [facility] y Number: Effective [id number] System Date:2017-10-14 [facility] [address] Repository 3162-98-04Ihrv[address] Name:Blue CrossPO BOX [address]2676Umn: [address]44[address]OOLBYRV, [place] [address]WP: [phone]) (HP) [phone] (WP) 10/21/2017 [facility] BUTLERDOB: Insurance:ANTHEMPolic BUTLERDOB: Three Repository y Number: [id number] [facility] [address] [id number] [address] [facility] [address] [place] [address] Date:3513-59-90PF [address] [address]Ryk: (999) 715173RQVIHFY, [place] [address]Gad: (HP) [address]KQ: (HP) [phone] 10/21/2017 [facility] Health Insurance:MEDICAREPol BUTLERDOB: Three Repository icy Number: [id number] [address] [facility] [address] Date:4199-97-58XNQ[address] J15 PART A CLAIMSPO [address]Vdt: (999) [address] [address]JPZZMJDMF, [phone] (HP) [place] [address]FZ: 10/21/2017 Tertiary [facility] Insurance:ANTHEMPolic BUTLERDOB: Three Repository y Number: [id number] [address] [facility] [address] Date: - 4698-58-58MJ [address] [place] [address] [address]18YJZETRC, [place] [address]DJ: 10/14/2017 [facility] BUTLERDOB: Insurance:ANTHEMPolic BUTLERDOB: Three Repository y Number: [id number] [facility] [address] [id number] [address] [facility] [address], [place] Date:6000-60-81FE [address], [place] [address]Lqn: (999) 526714CFVPFFC, [place] [address]Ceb: (HP) [address]HV: (HP) [phone] 10/14/2017 Secondary [facility] Insurance:MEDICAREPol BUTLERDOB: Three Repository icy Number: [id number] [address] [facility] [address] Date:8503-67-18XKR [place] J15 PART A CLAIMSPO [id number]: (999) [address]CBFBBMPTT, [phone] (HP) [place] [address]RB: 09/19/2017 [facility] BUTLERDOB: Insurance:1500 BUTLERDOB: [facility] MEDICARE [id number] System [facility] [address] PRIMARYPolicy Number: [address] [facility] [address] Repository [place] Effective [place] [id number]: Date:2017-08-16 [id number]: 8450-19-98Aoet (HP) Name:CD:[id number] O (HP)Tel: (000) [address]ZYOODWVVZ, 000-0000 () [place] [address]FY: 09/19/2017 Secondary [facility] Insurance:1500 BUTLERDOB: [facility] ANTHEMPolicy Number: [id number] System Effective [address] [facility] [address] Repository Date:2017-08-16 - [place] 1735-53-46Gtfh [id number]: Name:CD:[id number] O [address]MFZYHJE, [place] ()Tel: (727) [phone]: (WP) [phone] 08/23/2017 [facility] BUTLERDOB: Insurance:MedicarePol BUTLERDOB: [facility] icy Number: Effective [id number] System [facility] [address] Date:2017-08-19 [facility] [address] Repository [place] 9584-63-06Xhlt [place], [place] [id number]: Name:CD:[id number] [address]Tzj: 851886XVOWMIRMLE, [place] (HP) [phone]: (996) (HP) 000-0000 (WP) 08/23/2017 Secondary [facility] Insurance:ANTHEMPolic BUTLERDOB: [facility] y Number: Effective [id number] System Date:2017-08-19 [facility] [address] Repository 2627-35-24Ezum [address] [place] [address], [place] Name:Nigel BrucePO [address]Obm: 259261NHPEBYI, [place] [address]WP: (687) (HP) 000-0000 (WP) 08/16/2017 [facility] BUTLERDOB: Insurance:1500 BUTLERDOB: [facility] MEDICARE [id number] System [facility] [address] PRIMARYPolicy Number: [address] [facility] [address] Repository [place] Effective [place], [place] [id number]: Date:2017-07-05 [id number]: 3291-40-87Zjtw (HP) Name:CD:[id number] O (HP)Tel: (390) [address] [address]FGAYUPEFW, 000-0000 (WP) [place] [id number]: 08/16/2017 Secondary [facility] Insurance:1500 BUTLERDOB: [facility] ANTHEMPolicy Number: [id number] System Effective [address] [facility] [facility] [address] Repository Date:2017-07-05 [place] 5581-31-56Relr [id number]: Name:CD:[id number] O [address]164DEKHGIA, [place] (HP)Tel: (436) [phone]: (WP) [phone] 08/10/2017 [facility] Primary [facility] BUTLERDOB: Insurance:MedicarePol BUTLERDOB: [facility] icy Number: Effective [id number] [address] Date:2017-08-10 [facility] [address] Repository [address] [place] [address] 6390-88-65Nsax [address] [place] [address] [id number]: Name:CD:[id number] [address]Yzz: 769613JZORNTOGCC, [place] (HP) [phone]: (800) (HP) 000-0000 (WP) 08/10/2017 Secondary [facility] Insurance:ANTHEMPolic BUTLERDOB: [facility] y Number: Effective [id number] System Date:2017-08-[address] [facility] Repository 1635-15-40Ampk [address] [place] [address] Name:Nigel Lewis [address]Fmo: 780466XKBYXIR, [place] [address]PI: ([phone]) (HP) 000-0000 (WP)
== END ==
PROVIDERS: Family Provider Family Medicine; PCP Family Medicine; Referring Provider Internal Medicine Gastroenterology; Visit Provider Internal Medicine Gastroenterology
DX: R10.9 Unspecified abdominal pain (principal); R63.4 Abnormal weight loss
CPT/HCPCS: 36415; 80053; 82784; 83516; 85027; 85652; 86255

== ENCOUNTER → 2018-07-10 09:16 | Outpatient (CLI) | payer MEDICARE, BC, SELFPAY ==
--- NOTE | 2018-07-10 09:20 | US_ITS ---
STUDY: ABDOMINAL ULTRASOUND REASON FOR EXAM: Male, 73 years old. Abdominal pain TECHNIQUE: Transabdominal ultrasound was performed with real-time and static [place] scale imaging. TECHNICAL QUALITY: Adequate. COMPARISON: CT November 21, 2016. FINDINGS: Liver: The liver measures 12.9 cm. There is increased echogenicity consistent with fatty infiltration. The bile ducts are within normal limits. There is hepatic color flow. The direction of portal flow is hepatopetal. There is no demonstrated mass lesion. Gallbladder: Normal distended gallbladder. The gallbladder wall measures 2 mm. There is a negative sonographic Carlson's sign. There is no pericholecystic fluid. There are no gallstones. Common Bile Duct (C.B.D.): The common bile duct measures 5 mm. Pancreas: Normal size of the head, body and tail of the pancreas. There is normal echogenicity of the pancreas. There is no demonstrated pancreatic mass or cyst. Spleen: Normal size of the spleen. The spleen measures 12.3 cm. Right Kidney: Normal size of the right kidney. The right kidney measures 10.7 cm. Normal renal cortex. The right cortex measures 1.3 cm. There is a 4.8 cm cyst at the upper pole. There is no right hydronephrosis. Left Kidney: Normal size of the left kidney. The left kidney measures 10.9 cm. Normal renal cortex. The left cortex measures 1.4 cm. There is no demonstrated renal mass or cyst. There is no left hydronephrosis. Aorta: Normal. I.V.C.: The IVC is patent. There is no ascites. US/Abdomen Complete IMPRESSION: Fatty infiltration of the liver. No gallstones or biliary dilatation. Right renal cyst. Electronically Signed: Aston Rivera MD at 17:06 EST , Service support ,
== END ==
PROVIDERS: Family Provider Family Medicine; PCP Family Medicine; Referring Provider Internal Medicine Gastroenterology; Visit Provider Internal Medicine Gastroenterology
DX: R10.9 Unspecified abdominal pain (principal); R63.4 Abnormal weight loss
CPT/HCPCS: 76700

== ENCOUNTER → 2019-01-01 17:35 | Outpatient (CLI) | payer MEDICARE, BC, SELFPAY ==
--- NOTE | 2019-01-01 17:40 | CT_ITS ---
STUDY: CT BRAIN WITHOUT CONTRAST REASON FOR EXAM: Male, 73 years old. Memory loss, vertigo RADIATION DOSAGE (If Supplied By Facility): CTDIvol = ( 44.99 ) mGy, DLP = ( 779.24 ) mGycm TECHNIQUE: Transaxial CT imaging of the brain was performed without administration of intravenous contrast material. Individualized dose optimization techniques were used for this CT. COMPARISON: None FINDINGS: Normal soft tissue structures. Normal calvarium. Metallic artifact from a new implanted right-sided cochlear implant limiting some images. Normal size ventricles and extra-axial spaces for the patient's age. Normal white matter tracts of the cerebral hemispheres. Normal basal ganglia and thalami. Normal brainstem. Normal cerebellum. There is no intracranial hemorrhage. There are no findings of an acute ischemic infarction. Mild mucosal thickening of the visualized paranasal sinuses. Underpneumatized mastoids. CT/Brain/Head without Contrast IMPRESSION: Technically limited unenhanced CT scan of the brain due to artifact from implanted device. No gross intracranial pathology. Mild paranasal sinus disease. Electronically Signed: Kevan Huffman DO at 18:28 EDT Tel [phone], Service support ,
== END ==
PROVIDERS: Family Provider Family Medicine; PCP Family Medicine; Referring Provider Psychiatry & Neurology Neurology; Visit Provider Psychiatry & Neurology Neurology
DX: R41.3 Other amnesia (principal)
CPT/HCPCS: 70450

== ENCOUNTER 2019-04-02 16:30 | Outpatient (RCR) | payer MEDICARE, BC, SELFPAY ==
--- NOTE | 2019-02-19 17:27 | HP.PTEVAL_ITS ---
Patient's Visit Information CHARLES HODGSON is a 73 year old M referred to Physical Therapy by Baudilio Slaughter MD with a diagnosis of vertigo. Date of Evaluation: 02/19/19 Physical Therapist: Rory Junior, BALDOMEROT, OCS, CSCS - Visit Plan Frequency: 2x /Week Duration: 2 Months Plan: 2x/week for 4-8 weeks. Please progress VOR HEP when it is no longer symptomatic at home. Please work on combination balance and head mvoement ex(walking with turns adn bending, bedning ex and VOR challenges. - Subjective Findings: present also. Has cochlear implant and hearing aids. I am dizzy. Been that way for a couple months, mostly imbalanced. Room was spinning a year ago. Saw Rigoberto at the time and did positional treatmetn adn did not have any more problems. This feels like I have been drinking. Started insidiously. Worse with moving head. Memory can be poor. Lying and bending can be problematic and head feels funny and feels lightheaded adn dizzy but not spinning. H/o mastoid operation and dizzy in 1959. When this started had a hard time walking. Balance is improving but still constantly present and worse with head movements. 0/10 at rest. Head movements 4/10. Sleep is good. 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 Home activities are normal but symptomatic with head movements. Hobbies include fishing and golfing. Feels worse golfing but goes . No falls, no AD, steps are OK. - Objective c/s AROM 40 B rotation with pain, 30 ext with pain. UE AROM WFL and reflexes 2/3 bi and tri. Sensation WNL to gross light touch. - B hallpike edin and - roll test. Walks and trasnsfers well and I. Ocuomotor: no nystagmus with gaze or head shake. normal convergence. - head thrust but neck motion limited. pursuit and saccades are normal. - skew eye deviation. VOR makes dizzy short term with horizontal, not vertical. - Balance Scores Functional Gait Assessment Score: 27 % Disability: 10.0000 CATSIB Score (Max score 120 seconds): 120 - Goals Goal 1:: abolish vertigo feeling. Goal Time Frame: 6-8 Weeks Goal 2:: Pt feel 100% back to normal speed with activities Goal Time Frame: 6-8 Weeks Goal 3:: DHI less than 10% Goal Time Frame: 6-8 Weeks Goal 4:: I appropr HEP to minimzie future problems Goal Time Frame: 6-8 Weeks - Rehabilitation Potential Physical Therapy Diagnosis: vertigo, posible vestibualr hypofunction Rehabilitation Potential: Fair - Anticipated Interventions Patient/Client Instruction: Educate patient on: Condition, Plan of Care For the Purpose of:: To increase tolerance to activity/condition/position, To improve ability of physical actions for home/community/work/leisure Therapeutic Exercise to Include: Balance training Comment: VOR and head movement For the Purpose of:: To increase tolerance to activity/condition/position, To improve ability of physical actions for home/community/work/leisure Thank you for the opportunity to evaluate your patient. For Medicare and Medicare HMO plans, please review the plan of care and approve it. It will need to be FAXED BACK to us at [phone] for Medicare purposes. For Medicare only, by signing this I certify the plan of care. Please let me know if there are questions or concerns regarding this plan of care. Physician Signature: Date:
--- NOTE | 2019-04-02 17:25 | HP.PTDCSUM ---
HP - PT D/C Summary It has been my pleasure to treat CHARLES HODGSON under orders from Baudilio Slaughter MD, for the diagnosis of vertigo for a total of 8 visit(s). Discharge Date: 04/02/19 Please see the following information for a summary of their discharge status. - Subjective Subjective: Not feeling much dizzyness. No probems but irritable. To [facility] next week. Balance feels OK btu comes and goes with some drunk feelings. No falls. Driving and sitting are no problem. HEP give symptoms at times. No change to HEP. - Overall Improvement % Improvement: 0 - Objective Objective/Function: No dizzyness increase with MSQ positions. VOR adn VOR x 2 still increase the feeling very slightly but this is not improving depsite doing the right HEP. OVERALL NOT PROGRESSING WITH FEELING OF DIZZYNESS ADN SHOULD GO BACK TO DOCTOR FOR FURTHER OPTIONS. - Goals Goal 1:: abolish vertigo feeling. Goal Progress: Not Progressing Goal 2:: Pt feel 100% back to normal speed with activities Goal Progress: Not Progressing Goal 3:: DHI less than 10% Goal Progress: Progressing Goal 4:: I appropr HEP to minimzie future problems Goal Progress: Not Progressing - Plan Plan: D/C back to doctor next week. - D/C Information Discharge Comments: Pt back to doctor as vestibular therapy is not helping. He hall ee doctor next week. If there are questions or concerns regarding this patient's physical therapy, please feel free to call me at [phone]. Thank you for the referral of this patient. Sincerely, Rory Junior, DPT, OCS, CSCS
== END 2019-04-02 19:00 | disposition home or self-care (01) ==
LOC: PT 16:30
PROVIDERS: Family Provider Family Medicine; PCP Family Medicine; Referring Provider Psychiatry & Neurology Neurology; Visit Provider Psychiatry & Neurology Neurology
DX: R42 Dizziness and giddiness (principal)
CPT/HCPCS: 97110; 97162; 97530

== ENCOUNTER 2021-08-07 15:21 | Outpatient (CLI) | payer MEDICARE, BC, SELFPAY ==
--- NOTE | 2021-08-07 15:35 | CT_ITS ---
CT of the temporal bones INDICATION: Right hearing loss Comparison study 12/20/2017 TECHNIQUE: CT of the temporal bones was performed in the axial projection without contrast followed by sagittal and coronal reconstructions. Radiographic technique was optimized to limit patient radiation dose. DLP was 764.09 FINDINGS: Examination of the right temporal bone demonstrates postsurgical changes status post cochlear implant placement. The tympanic membrane is not visualized likely postsurgical. The bony ossicles are not present.. Diffuse soft tissue thickening is seen within the external auditory canal extending into the tympanic cavity and epitympanic recess and attic. There is suggestion of dehiscence of the cochlear wall and lateral semicircular canal Postsurgical changes are noted status post partial right mastoidectomy. The residual mastoid air cells are not aerated which may be on the basis of chronic inflammatory disease. There is mild thickening of the mucosal lining of the inner aspect of the external auditory canal as well as thickening of the tympanic membrane which appears retracted in association with minor mucosal thickening within the tympanic cavity.. There is diminished pneumatization of the mastoid air cell tip which may be on the basis of old inflammatory disease. CT/Orb Sella Post Fossa Ear w/o IMPRESSION: Postsurgical changes status post right-sided cochlear implant.. Diffuse soft tissue thickening of the external auditory canal and tympanic cavity which may be consistent with otitis external and otitis media of indeterminate chronicity. Acquired cholesteatoma not excluded. . Other findings as above Electronically Signed: Jose Alberto Martínez MD at 16:16 EST , Service support ,
== END 2021-08-07 23:59 | disposition home or self-care (01) ==
LOC: CT 15:30
PROVIDERS: PCP Family Medicine; Referring Provider Otolaryngology; Visit Provider Otolaryngology
DX: H90.3 Sensorineural hearing loss, bilateral (principal)
CPT/HCPCS: 70480